=== PATIENT | female | born 1930 | race Caucasian/White ===

== ENCOUNTER 2017-10-23 10:21 | Observation (INO) | payer OTHER, BC ==
[~2017-10-23] VITALS: Ht 147.3 cm; Wt 66.0 kg
--- NOTE | ~2017-10-23 | EKG ---
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: CORY : 1930 Requested By: Demetri Sawyer Order Number: [id number] MD: Kip Thomas Measurements Intervals [place] Rate: 56 P: -27 AR: 153 QRS: -26 QRSD: 161 T: -1 QT: 445 QTc: 430 Interpretive Statements Sinus rhythm Right bundle branch block Nonspecific T wave abnormality Compared to ECG 03/01/2003 00:25:57 Right bundle-branch block now present Electronically Signed On 10-23-2017 12:33:21 CDT by Kip Thomas [email or web address] <ELECTRONICALLY SIGNED> By: Kip Thomas MD, [facility] 10/23/17 1233 1147 [id number] Kip Thomas MD, [facility] /EPI
--- NOTE | ~2017-10-23 | 2DMMODE ---
[facility] [address] [place] [address] 2 D/M-MODE ECHOCARDIOGRAM Name: MATHEUSDianeDESI R Room #: 201-P [facility] IN M.R.#: [id number] Admission: 10/23/17 Attend Phys: Wili Dobson, Discharge: Date of : 30 Date of Service: 10/24/17 1444 Report #: [id number] THIS REPORT FOR: //name// APPROVED REPORT Study performed: 10/24/2017 13:09:58 EXAM: Comprehensive 2D, Doppler, and color-flow Echocardiogram Patient Location: Echo lab Room #: 201 Status: routine BSA: 1.61 HR: 60 bpm BP: 128/68 mmHg Rhythm: NSR Other Information Study Quality: Adequate Technically limited study due to body habitus. Indications Elevated Troponin Fatigue 2D Dimensions LVEF(%): 65.69 (>50%) IVSd: 10.23 (7-11mm) LVOT Diam: 20.15 (18-24mm) LVDd: 51.27 mm PWd: 10.22 (7-11mm) Ascending Ao: 34.68 (22-36mm) LVDs: 32.65 (25-40mm) Aortic Root: 34.37 mm IVC: 21.00 mm Li's LVEF: 65.69 % Volumes Left Atrial Volume (Systole) Single Plane 4CH: 58.95 mL Single Plane 2CH: 51.88 mL LA ESV Index: 36.00 mL/m2 Aortic Valve AoV Peak Pedro.: 1.49 m/s AO Peak Gr.: 8.83 mmHg LVOT Max P.46 mmHg LVOT Max V: 1.06 m/s MARGARITA Vmax: 2.27 cm2 Mitral Valve [facility] [address] [place] [address] 2 D/M-MODE ECHOCARDIOGRAM Name: DESI TORREZ Room #: 201-P [facility] IN .R.#: [id number] Admission: 10/23/17 Attend Phys: Wili Dobson, Discharge: Date of : 30 Date of Service: 10/24/17 1444 Report #: [id number] E/A Ratio: 0.8 MV Decel. Time: 218.44 ms MV E Max Pedro.: 0.87 m/s MV A Pedro.: 1.08 m/s MV PHT: 63.35 ms IVRT: 133.79 ms Pulmonary Valve PV Peak Pedro.: 0.93 m/s PV Peak Gr.: 3.43 mmHg Pulmonary Vein P Vein S: 0.65 m/s P Vein A: 0.25 m/s P Vein D: 0.52 m/s P Vein A Dur.: 96.9 msec P Vein S/D Ratio: 1.25 Tricuspid Valve TR Peak Pedro.: 3.89 m/s RAP Estimate: 5.00 mmHg TR Peak Gr.: 60.61 mmHg PA Pressure: 65.00 mmHg Left Ventricle The left ventricle is normal size. Mild concentric left ventricular hypertrophy. Left ventricular systolic function is hyperdynamic. LVEF is 65-70%. Grade I - abnormal relaxation pattern. Right Ventricle The right ventricle is normal size. The right ventricular systolic function is normal. Atria Left atrium is dilated. The right atrium size is normal. Aortic Valve The Aortic valve is sclerotic. Mild aortic regurgitation. There is no aortic valvular stenosis. Mitral Valve There is mitral annular calcification. Mitral valve leaflets are thickened and calcified. Mild to moderate mitral regurgitation. No evidence of mitral valve stenosis. Tricuspid Valve The tricuspid valve is normal in structure. Moderate tricuspid regurgitation. Estimated PAP 65 mmHg. Pulmonic Valve [address] [address] 2 D/M-MODE ECHOCARDIOGRAM Name: DESI TORREZ Rakesh Room #: 201-P [facility] IN .#: [id number] Admission: 10/23/17 Attend Phys: Wili Dobson, Discharge: Date of : 30 Date of Service: 10/24/17 1444 Report #: [id number] The pulmonary valve is normal in structure. Trace pulmonic regurgitation. Great Vessels The aortic root is normal in size. The ascending aorta is normal in size. IVC is normal in size and collapses >50% with inspiration. Pericardium There is no pericardial effusion. <Conclusion> The left ventricle is normal size. LVEF is 65-70%. Left atrium is dilated. The Aortic valve is sclerotic. Mild aortic regurgitation. There is no aortic valvular stenosis. There is mitral annular calcification. Mitral valve leaflets are thickened and calcified. Mild to moderate mitral regurgitation. The tricuspid valve is normal in structure. Moderate tricuspid regurgitation. Estimated PAP 65 mmHg. The pulmonary valve is normal in structure. Trace pulmonic regurgitation. There is no pericardial effusion. <ELECTRONICALLY SIGNED> By: Garrison Shay MD 10/24/17 1444 1444 1444 Garrison Shay MD /INF
[2017-10-23 10:54] VITALS: BP 129/79
[2017-10-23 11:54] LABS: ABSOLUTE NEUTROPHILS 7.2 thou/uL (1.4-8.2); BASOPHILS 0.7 % (0.0-2.0); EOSINOPHILS 0.8 % (0.0-3.0); HEMATOCRIT 38.3 % (37.0-47.0); HEMOGLOBIN 13.1 gm/dL (12.0-15.0); LYMPHOCYTES 13.4 % (24.0-44.0); MCH 30.1 pg (26.0-34.0); MCHC 34.4 g/dL (28.0-37.0); MCV 87.5 fL (80.0-100.0); MONOCYTES 9.7 % (1.0-8.0); PLATELET COUNT 329 thou/uL (150-400); POLYS 75.4 % (36.0-66.0); RBC 4.37 mil/uL (4.20-5.00); RDW 13.2 % (10.5-14.5); WBC 9.6 thou/uL (4.0-11.0)
[2017-10-23 12:08] LABS: CALCIUM 9.4 mg/dL (8.5-10.1); CREATININE 1.1 mg/dL (0.6-1.0); POTASSIUM 3.6 mmol/L (3.5-5.1)
[2017-10-23 12:14] LABS: ALBUMIN 3.1 g/dL (3.4-5.0); MAGNESIUM 1.8 mg/dL (1.8-2.4); TOTAL BILIRUBIN 1.2 mg/dL (<0.1-1.0); TOTAL PROTEIN 7.2 g/dL (6.4-8.2); TROPONIN-I 0.1 ng/mL (<0.06)
[2017-10-23 12:15] LABS: URINE BILIRUBIN NEGATIVE (Negative); URINE BLOOD NEGATIVE (Negative); URINE COLOR YELLOW; URINE GLUCOSE-RANDOM* NEGATIVE (Negative); URINE KETONES NEGATIVE (Negative); URINE LEUKOCYTES-REFLEX 2+ (Negative); URINE NITRITE-REFLEX POSITIVE (Negative); URINE PROTEIN (DIPSTICK) NEGATIVE (Negative); URINE SPECIFIC GRAVITY 1.015 (1.005-1.035)
[2017-10-23 12:16] LABS: URINE CLARITY HAZY
[2017-10-23 12:31] LABS: BACTERIA-REFLEX >30 Many /HPF (None Seen); CASTS None Seen /LPF (None Seen); SQUAMOUS 4-10 Moderate /LPF (0-3); URINE WBC-REFLEX >25 Many /HPF (0-5)
[2017-10-23 12:32] LABS: CRYSTALS None Seen /LPF (None Seen)
[2017-10-23 12:33] LABS: URINE RBC 0-2 Rare /HPF (0-2)
[2017-10-23] MEDS ORDERED: ATENOLOL 50MG T50 M1 PO (13:24)
[2017-10-23] MEDS ORDERED: ASPIR 8181 MG PO (13:25)
[2017-10-23] MEDS ORDERED: HYDROCHLOROTHIA25 M2 PO (13:25)
[2017-10-23] MEDS ORDERED: ATENOLOL 50MG T50 MG PO (13:25)
[2017-10-23] MEDS ORDERED: LIPITOR 20 MG T20 M1 PO (13:26)
[2017-10-23 14:16] VITALS: BP 136/89
[2017-10-23 16:10] VITALS: BP 141/68
[2017-10-23] MEDS ORDERED: COZAAR 50 MG TA50 M2 PO (17:13)
[2017-10-23] MEDS ORDERED: FISH OIL 1,001000 M2 PO (17:14)
[2017-10-23] MEDS ORDERED: POTASSIUM20 PO (17:14)
[2017-10-23 19:54] VITALS: BP 144/89
[2017-10-23 23:20] VITALS: BP 135/65
[2017-10-24 02:41] LABS: HEMATOCRIT 35.5 % (37.0-47.0); HEMOGLOBIN 12.2 gm/dL (12.0-15.0); MCH 30.1 pg (26.0-34.0); MCHC 34.3 g/dL (28.0-37.0); MCV 87.7 fL (80.0-100.0); RBC 4.05 mil/uL (4.20-5.00); RDW 13.3 % (10.5-14.5); WBC 9.4 thou/uL (4.0-11.0)
[2017-10-24 03:57] LABS: CALCIUM 8.8 mg/dL (8.5-10.1); CREATININE 1.1 mg/dL (0.6-1.0); MAGNESIUM 1.6 mg/dL (1.8-2.4); POTASSIUM 3.6 mmol/L (3.5-5.1)
[2017-10-24 04:58] VITALS: BP 119/57
[2017-10-24 08:00] VITALS: BP 148/77
[2017-10-24 11:56] VITALS: BP 120/64
[2017-10-24] MEDS ORDERED: LEVAQUIN 500 M500 M2 PO (15:19)
[2017-10-24 16:01] VITALS: BP 120/64
== END 2017-10-24 16:56 | disposition home or self-care (01) ==
LOC: ER 10:21 → EROBS 12:26 → 2N 14:10 → ENTRNSPT 10-24 16:38 → 2N 10-24 16:56
PROVIDERS: Emergency Medicine; Internal Medicine
DX: N39.0 Urinary tract infection, site not specified (principal); R79.89 Other specified abnormal findings of blood chemistry; R53.1 Weakness; N17.9 Acute kidney failure, unspecified; E86.9 Volume depletion, unspecified; E78.5 Hyperlipidemia, unspecified; E83.42 Hypomagnesemia; I25.10 Atherosclerotic heart disease of native coronary artery without angina pectoris; I25.2 Old myocardial infarction; I12.9 Hypertensive chronic kidney disease with stage 1 through stage 4 chronic kidney disease, or unspecified chronic kidney disease; N18.9 Chronic kidney disease, unspecified; Z95.1 Presence of aortocoronary bypass graft; Z95.5 Presence of coronary angioplasty implant and graft